=== PATIENT | female | born 1995 | race African-American/Black ===

== ENCOUNTER 2017-05-28 10:54 | Emergency (ER) | payer MEDICAID, OTHER ==
[~2017-05-28] VITALS: Ht 162.6 cm; Wt 74.6 kg
[~2017-05-28 10:54] MED LIST: PRON INH
[2017-05-28 11:04] VITALS: BP 116/75
--- NOTE | 2017-05-28 11:53 | NUR ---
AMBULATED TO ER BED 8
--- NOTE | 2017-05-28 12:00 | NUR ---
Sindy hassan in EDM - 05/28/17 at 1219 by MIC / BIB FAMILY C/O VAGINAL PINK WITH RED STREAK UPON WIPING TODAY---DENIES ABDOMINAL PAIN, DENIES INJURY BELIEVES IS 8WKS --HAD ULTRASOUND LAST WEEK BY OB A1
--- NOTE | 2017-05-28 12:00 | NUR ---
22/F BIB FAMILY C/O VAGINAL PINK WITH RED STREAK UPON WIPING TODAY---DENIES ABDOMINAL PAIN, DENIES INJUR. PT STATES SHE BELIEVES IS 8WKS --HAD ULTRASOUND LAST WEEK BY OB A1. AAOx4, PERRLA, BREATHING EVEN AND UNLABORED. ERMD NOTIFIED OF PATIENT STATUS.
--- NOTE | 2017-05-28 12:03 | NUR ---
Patient being evaluated by physician at bedside.
[2017-05-28 12:24] LABS: BASOPHILS # (AUTO) 0.2 K/uL (0.00-0.22); EOSINOPHILS # (AUTO) 0.2 K/uL (0-0.4); MONOCYTES # (AUTO) 0.4 K/uL (0.8-1.0); WHITE BLOOD COUNT (AUTO) 6.8 K/uL (4.8-10.8)
[2017-05-28 12:24] LABS: APPEARANCE,URINE CLEAR (CLEAR); BILIRUBIN,URINE NEGATIVE (NEGATIVE); BLOOD, URINE TRACE-I (NEGATIVE); COLOR,URINE YELLOW (YELLOW); LEUKOCYTE ESTERASE ,URINE NEGATIVE (NEGATIVE); NITRITE, URINE NEGATIVE (NEGATIVE); UGLUCOSE NEGATIVE (NEGATIVE)
[2017-05-28 12:26] LABS: BASOPHILS % (AUTO) 2.7 % (0.0-2.0); EOSINOPHILS % (AUTO) 2.9 % (0.0-4.0); HEMATOCRIT 39.4 % (36-48); HEMOGLOBIN 12.8 g/dL (12.0-16.0); LYMPHOCYTES # (AUTO) 1.7 K/uL (2.5-16.5); LYMPHOCYTES % (AUTO) 25.7 % (20.5-51.1); MEAN CORPUSCULAR HEMOGLOBIN 26 pg (27-31); MEAN CORPUSCULAR HGB CONC 32 g/dL (33-37); MEAN CORPUSCULAR VOLUME 79 fL (80-94); MONOCYTES % (AUTO) 5.7 % (1.7-9.3); NEUTROPHILS # (AUTO) 4.2 K/uL (1.8-7.7); PLATELET COUNT (AUTO) 237 K/uL (140-450); RED BLOOD CELL COUNT(AUTO) 4.96 MIL/uL (4.20-5.40); RED CELL DISTRIBUTION WIDTH 16.5 % (11.6-13.7)
--- NOTE | 2017-05-28 12:45 | NUR ---
Ultrasound at bedside.
[2017-05-28 12:50] LABS: RBC,URINE 0-5 (RARE) /HPF (0-5); WBC,URINE 0-5 (RARE) /HPF (0-5)
--- NOTE | 2017-05-28 13:45 | NUR ---
PT RESTING. FAMILY AT BEDSIDE. PATIENT PRESENTS TO ED WITH . PT STATES . DENIES N/V/D; SKIN IS PINK/WARM/DRY; PAIN OF 0/10 AT THIS TIME; VSS; PATIENT POSITIONED FOR COMFORT; HOB ELEVATED; BEDRAILS UP X2; BED DOWN. ER MD MADE AWARE OF PT STATUS.
[2017-05-28 14:45] VITALS: BP 118/65
--- NOTE | 2017-05-28 14:45 | NUR ---
Patient discharged with v/s stable. Written and verbal after care instructions given and explained. Patient verbalized understanding. Ambulatory with steady gait. All questions addressed prior to discharge. Advised to follow up with PMD.
== END 2017-05-28 14:45 | disposition home or self-care (01) ==
LOC: MED 10:54
DX: O20.0 Threatened abortion (principal); R03.0 Elevated blood-pressure reading, without diagnosis of hypertension; J45.909 Unspecified asthma, uncomplicated; Z3A.08 8 weeks gestation of pregnancy; Z79.899 Other long term (current) drug therapy
CPT/HCPCS: 36415; 76801; 81001; 81025; 84702; 85025; 86900; 86901; 99285; Q0092

== ENCOUNTER 2017-08-22 22:05 | Observation (INO) | payer MEDICAID ==
[~2017-08-22] VITALS: Ht 160 cm; Wt 77.1 kg
[2017-08-22] MEDS ORDERED: FERR-252 PO (23:14)
[2017-08-22] MEDS ORDERED: PREN-546 PO (23:14)
[2017-08-22] MEDS ORDERED: CALC500T2 PO (23:14)
[2017-08-22 23:59] VITALS: BP 114/67
== END 2017-08-23 01:50 | disposition home or self-care (01) ==
LOC: MLD 22:05
PROVIDERS: ADMIT Obstetrics & Gynecology; ATTEND Obstetrics & Gynecology
DX: O26.892 Other specified pregnancy related conditions, second trimester (principal); R10.30 Lower abdominal pain, unspecified; Z3A.20 20 weeks gestation of pregnancy
CPT/HCPCS: 76805; G0378; Q0092